=== PATIENT | male | born 1930 | race Caucasian/White ===

== ENCOUNTER 2016-07-05 08:12 | Emergency (ER) | payer MEDICARE, BC ==
--- NOTE | 2016-07-05 08:31 | Emergency Department Record ---
History of Present Illness - General Chief Complaint: Cough Stated Complaint: COUGHING UP BLOOD Time Seen by Provider: 07/05/16 08:24 Source: Patient Mode of Arrival: Ambulatory Limitations: No limitations - History of Present Illness Initial Comments: 86 yo male presents with a cough for 3 months. The cough has been a dry cough. He had one subjective fever about one week ago. He quick smoking about 40years prior. No known history of underlying lung disease. He saw his PCP last . No specific tests performed to date. This morning during a hard coughing spell he noted some streaks of blood. No pain. No new shortness of breath. He states he gets short of breath with activity but this has been ongoing and is unchanged. PCP is Dr Diehl with [facility]. Complaint: Cough Onset/Timin -: Days(s) Consistency: Constant Improves With: Nothing Worsens With: Nothing Associated Symptoms: Fever (One week ago) Treatments Prior to Arrival: None - Related Data Home Medications Medication Instructions Recorded Confirmed Last Taken Aspirin [Aspirin EC] 81 mg PO DAILY 02/23/14 07/05/16 07/05/16 Finasteride [Finasteride] 5 mg PO ASDIR 02/23/14 07/05/16 07/05/16 Glipizide [Glipizide ER] 5 mg PO ASDIR 02/23/14 07/05/16 07/05/16 Lisinopril [Lisinopril] 10 mg PO DAILY 02/23/14 07/05/16 07/05/16 Metformin HCl [Metformin HCl ER] 500 mg PO ASDIR 02/23/14 07/05/16 07/05/16 Omeprazole [Omeprazole] 20 mg PO DAILY 02/23/14 07/05/16 07/05/16 Simvastatin [Simvastatin] 20 mg PO DAILY 02/23/14 07/05/16 07/04/16 Tamsulosin HCl [Tamsulosin HCl] 0.4 mg PO ASDIR 02/23/14 07/05/16 07/04/16 Calcium Citrate/Vitamin D3 1 each PO DAILY 07/05/16 07/05/16 07/05/16 [Calcium Citrate - Vit D Caplet] Flaxseed Oil [Flax Seed Oil] 1,000 mg PO DAILY 07/05/16 07/05/16 07/05/16 Multivit-Min/FA/Lycopen/Lutein 1 each PO DAILY 07/05/16 07/05/16 07/05/16 [Centrum Silver Men Tablet] [place]-3/Dha/Epa/Fish Oil [[place]-3 1 each PO DAILY 07/05/16 07/05/16 07/05/16 Fish Oil 1,000 mg Sftg] [place] 500 mg PO DAILY 07/05/16 07/05/16 07/05/16 Previous Rx's Medication Instructions Recorded Azithromycin [Zithromax] 250 mg PO DAILY #4 tab 07/05/16 Allergies Allergy/AdvReac Type Severity Reaction Status Date / Time carbenicillin indanyl sodium Allergy SHORTNESS Verified 06/01/15 11:49 [facility] OF BREATH Travel Screening - Travel/Exposure Within Last 30 Days Have you traveled within the last 30 days?: No - Travel/Exposure Within Last Year Have you traveled outside the [place] in the last year?: No - Additonal Travel Details Have you been exposed to anyone with a communicable illness?: No Review of Systems Constitutional: Reports: Fever. Denies: Chills, Malaise, Weakness Eyes: Denies: Eye discharge, Eye pain, Photophobia, Vision change ENT: Denies: Congestion, Epistaxis, Throat pain Respiratory: Reports: Cough, Dyspnea, Hemoptysis (few streak this morning). Denies: Stridor, Wheezes Cardiovascular: Reports: Dyspnea on exertion (chronic and unchanged). Denies: Chest pain, Edema, Palpitations, Syncope Endocrine: Denies: Fatigue, Polydipsia, Polyuria Gastrointestinal: Denies: Abdominal pain, Diarrhea, Nausea, Vomiting Genitourinary: Denies: Dysuria, Frequency, Hematuria Musculoskeletal: Denies: Arthralgia, Back pain, Myalgia, Neck pain Skin: Denies: Bruising, Change in color, Rash Neurological: Denies: Headache Psychiatric: Denies: Anxiety Hematological/Lymphatic: Denies: Anemia, Blood Clots, Easy bleeding, Easy bruising, Swollen glands Past Medical History - SOCIAL HISTORY Smoking Status: Former smoker Alcohol Use: Rare Drug Use: None - RESPIRATORY Hx Respiratory Disorders: Yes Hx COPD: Yes (PCP indicate beginning emphysema) - CARDIOVASCULAR Hx Cardio Disorders: Yes Hx Hypertension: Yes - NEURO Hx Neuro Disorders: No - GI Hx GI Disorders: Yes Hx Reflux: Yes Hx of Polyps: Yes - Hx Genitourinary Disorders: Yes Hx Prostate Problems: Yes - ENDOCRINE Hx Endocrine Disorders: Yes Hx Diabetes: Yes Hx Thyroid Disease: No - MUSCULOSKELETAL Hx Musculoskeletal Disorders: Yes Hx Arthritis: Yes - PSYCH Hx Psych Problems: No - HEMATOLOGY/ONCOLOGY Hx Hematology/Oncology Disorders: No Family Medical History Any Significant Family History?: No Family Hx Comment (NOT TO BE USED IN PLACE OF ITEMS BELOW): Brother diagnosed with Huntingtons Chorea Physical Exam - General General Appearance: Alert, Oriented x3, Cooperative, No acute distress Limitations: No limitations - Head Head exam: Normal inspection - Eye Eye exam: Normal appearance, PERRL. negative: Conjunctival injection, Periorbital swelling - ENT ENT exam: Normal exam, Mucous membranes moist, Normal external ear exam, Normal orophraynx Ear exam: Normal external inspection. negative: External canal tenderness Nasal Exam: Normal inspection. negative: Discharge, Sinus tenderness Mouth exam: Normal external inspection, Tongue normal Teeth exam: Normal inspection. negative: Dental caries Throat exam: Normal inspection. negative: Tonsillar erythema, Tonsillar exudate - Neck Neck exam: Normal inspection, Full ROM. negative: Tenderness - Respiratory Respiratory exam: Normal lung sounds bilaterally, Other (Clear lungs with normal effort, non labored, no conversational dyspnea). negative: Accessory muscle use, Decreased breath sounds, Respiratory distress, Rhonchi, Stridor, Wheezes - Cardiovascular Cardiovascular Exam: Regular rate, Normal rhythm, Normal heart sounds - GI/Abdominal GI/Abdominal exam: Soft. negative: Tenderness - Rectal Rectal exam: Deferred - exam: Deferred - Extremities Extremities exam: Normal inspection, Full ROM, Normal capillary refill. negative: Tenderness - Back Back exam: Reports: Normal inspection, Full ROM. Denies: Muscle spasm, Rash noted, Tenderness - Neurological Neurological exam: Alert, Normal gait, Oriented X3 - Psychiatric Psychiatric exam: Normal affect, Normal mood. negative: Agitated, Anxious - Skin Skin exam: Dry, Intact, Normal color, Warm Course Vital Signs 07/05/16 08:14 Temperature 97.7 F Pulse Rate 98 H Respiratory 18 Rate Blood Pressure 158/95 Pulse Ox 96 - Reevaluation(s) Reevaluation #1: Well appearing 86 yo male He has a Kleenex with about a dime size streak of blood He has had 3 months of cough with some coughing "fits" that are very hard. Labs and XR ordered No chest pain, no hypoxia, no history of cancer, DVT, PE, 07/05/16 08:31 Reevaluation #2: The CBC demonstrates a mild anemia of 11.3 with prior of 12.1. 07/05/16 08:47 The CXR was reviewed. The patient has a soft tissue mass in the BRENDA. 07/05/16 08:59 Reevaluation #3: the patient was informed of the CXR findings. 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 07/05/16 09:14 Reevaluation #4: No acute changes on the CMP Zithromax provided in ED as well 07/05/16 09:23 Reevaluation #5: Final instructions were provided to the patient He will go to his doctors office tomorrow at 1Pm to discuss further work up the BRENDA mass He is comfortable, no shortness of breath, no continued blood, no hypoxia. 07/05/16 09:28 Medical Decision Making - Lab Data Result diagrams: 07/05/16 08:33 07/05/16 08:33 Disposition Disposition: Discharge Clinical Impression: Mass of chest wall, left, Cough, Hemoptysis, unspecified Disposition: Home, Self-Care Condition: (2) Stable Instructions: Acute Hemoptysis (ED) Additional Instructions: You will need to be seen at 1PM tomorrow by Dr Diehl/Lisa?O[place]al[place] Return if short of breath or uncontrolled or increased blood in your sputum Prescriptions: Azithromycin [Zithromax] 250 mg PO DAILY #4 tab Forms: Patient Portal Access Time of Disposition: 09:23
[2016-07-05 08:40] LABS: BASO % 0.4 % (0-6); EOS % 2.8 % (0-6); GRAN % 71.4 % (47-80); HEMATOCRIT 36.1 % (42.0-52.0); HEMOGLOBIN 11.3 gm/dl (14.0-18.0); LYMPH % 17.3 % (16-45); MEAN CELL VOLUME 94.5 fl (81-97); MEAN CORPUSCULAR HGB CONC 31.3 g/dl (32-36); MEAN PLATELET VOLUME 9.1 fl (7.4-10.4); MONO % 8.1 % (0-9); PLATELET COUNT 394 K/uL (130-400); RED BLOOD COUNT 3.82 M/uL (4.40-5.70); RED CELL DISTRIBUTION WIDTH 14.1 % (11.5-14.5); WHITE BLOOD COUNT W/O DIFF 10.3 K/uL (4.2-12.2)
[2016-07-05 08:41] LABS: MEAN CORPUSCULAR HEMOGLOBIN 29.5 pg (27-33)
[2016-07-05 08:50] LABS: ALB/GLOB RATIO 0.8 (1.1-1.8); ALBUMIN 3.9 gm/dL (3.5-5.0); ALKALINE PHOSPHATASE 107 U/L (38-126); ALT/SGPT 15 U/L (21-72); ANION GAP 8.2 (7-16); AST/SGOT 22 U/L (17-59); BILIRUBIN,TOTAL 0.98 mg/dL (0.2-1.3); BLOOD UREA NITROGEN 12 mg/dL (9-20); CARBON DIOXIDE 33.8 mmol/L (22-30); CREATININE 0.7 mg/dL (0.66-1.25); EST GLOMERULAR FILTRATION RATE > 60 ml/min; GLUCOSE,RANDOM 137 mg/dL (70-110); TOTAL PROTEIN 8.5 gm/dL (6.3-8.2)
[2016-07-05] MEDS: AZITHROMYCIN 500 MG TABLET PO ONE (09:29)
== END 2016-07-05 09:38 | disposition home or self-care (01) ==
LOC: ER 08:12
DX: R22.2 Localized swelling, mass and lump, trunk (principal); R04.2 Hemoptysis; R05 Cough; I10 Essential (primary) hypertension; Z87.891 Personal history of nicotine dependence
CPT/HCPCS: 71020; 80053; 85025; 99283; 99284